=== PATIENT | female | born 1960 | race Caucasian/White ===

== ENCOUNTER 2024-10-30 17:31 | Emergency (ER) | payer MEDICARE ==
[~2024-10-30] VITALS: Ht 170.2 cm; Wt 81.7 kg
[2024-10-30 17:38] VITALS: BP 132/84
[2024-10-30] MEDS ORDERED: OxyCODONE HCL 5 MG TAB PO ONE (18:35)
[2024-10-30] MEDS ORDERED: RX Prepack 6 Tabs Oxycodone 5mg UD ONE (20:20)
[2024-10-30] MEDS ORDERED: OXAYDO5 M1 PO (20:23)
[2024-11-04] MEDS ORDERED: Vitamin B Comple1 EA PO (10:04)
[2024-11-04] MEDS ORDERED: MULTI-VITAMIN1 EAC2 PO (10:04)
[2024-11-04] MEDS ORDERED: 1/2 NS 250ml250 ML (10:05)
== END 2024-10-30 20:30 | disposition home or self-care (01) ==
LOC: ER 17:31
DX: S52.501A Unspecified fracture of the lower end of right radius, initial encounter for closed fracture (principal); X50.9XXA Other and unspecified overexertion or strenuous movements or postures, initial encounter
CPT/HCPCS: 29125; 73110; 99283-25; A9270

== ENCOUNTER 2024-11-05 13:24 | Day surgery (SDC) | payer MEDICARE ==
[~2024-11-05] VITALS: Ht 167.6 cm; Wt 82.7 kg
[2024-11-05] VITALS (8 sets, daily range): BP systolic 131–169; BP diastolic 86–97
[~2024-11-05 13:24] MED LIST: 1/2 NS 250ml250 ML; CeFAZolin Sodium 2,000 MG in NS 100 ML IV SCH; Lactated Ringer's 1,000 ML IV SCH; MULTI-VITAMIN1 EAC2 PO; OXAYDO5 M1 PO; Vitamin B Comple1 EA PO
[2024-11-05] MEDS ORDERED: EpiNEPhrine 1 MG/1 ML 1ML Vial ONE (14:12)
[2024-11-05] MEDS ORDERED: Bupivacaine HCl 0.25% 30 ML Injection ONE (14:12)
[2024-11-05] MEDS ORDERED: Midazolam HCl 1MG / ML 2ML Vial ONE (14:15)
--- NOTE | 2024-11-05 14:15 | NUR ---
History, Chart, Medications and Allergies reviewed before start of procedure. Patient up to Ambulate independently. Gait steady. Pre-Op teaching done. Pt verbalizes understanding. Patient confirms NPO status and agrees with scheduled surgery. Patient States Post-Procedure ride home has been arranged.
[2024-11-05] MEDS ORDERED: propofoL 20 ML IV ONE (15:02)
[2024-11-05] MEDS ORDERED: Ondansetron HCl 2 MG / ML 2ML Vial ONE (15:13)
[2024-11-05] MEDS ORDERED: Dexamethasone Sod Phos 10 MG/ML 1ML VIAL ONE (15:13)
[2024-11-05] MEDS ORDERED: HYDROmorphone HCl/Pf 1MG SYR IV PRN ×2 (15:30→15:35)
[2024-11-05] MEDS ORDERED: FentaNYL Citrate 50 MCG/ML 2 ML Injection IV PRN ×2 (15:30→15:35)
[2024-11-05] MEDS ORDERED: Albuterol 2.5 MG/3 ML VIAL INH PRN (15:35)
[2024-11-05] MEDS ORDERED: Metoclopramide HCl 5MG / ML 2ML Vial IV PRN (15:35)
[2024-11-05] MEDS ORDERED: OxyCODONE HCL 5 MG TAB PO PRN ×2 (16:15→16:30)
--- NOTE | 2024-11-05 17:15 | NUR ---
DISCHARGE PT A&OX4/VSS/RA/JASMINE PO H20/TALKING/PLEASANT/ BEDSIDE, PAIN TREATED WITH OXY 5MG, DENIES NAUSEA, DC INS PROVIDED TO AND PT - BOTH REP UNDERSTANDING, LEFT VIA WC WITH RN WITH ALL PERSONAL ITMS INCLUDING PHONE AND GLASSES, TO GO HOME WITH /CHICK SEXER, IV DC'D
== END 2024-11-05 17:15 | disposition home or self-care (01) ==
LOC: ORSCMMR 13:24 → ORD 13:24 → ORSCMMR 13:25 → ORD 23:00
PROVIDERS: Orthopaedic Surgery
PROC: 0PSH04Z Reposition Right Radius with Internal Fixation Device, Open Approach (ICD-10-PCS; principal; 2024-11-05 15:30)
DX: S52.551A Other extraarticular fracture of lower end of right radius, initial encounter for closed fracture (principal)
CPT/HCPCS: 73100; A9270; C1713; J0171; J0690; J1100; J2250; J2405; J2704; J7120